=== PATIENT | male | born 1990 | race Asian ===

== ENCOUNTER 2019-10-31 08:55 | Emergency (ER) | payer BC ==
--- NOTE | 2019-10-31 09:15 | ED ---
GI/ HPI - HPI Summary HPI Summary: Patient is a 29 y/o M presenting to the ED for a chief complaint of hematuria and left flank pain that began on the night of 10/30/19. Patient describes the left flank pain as intermittent that worsens with movement. Patient denies any fever or hematuria before this episode began. He also complains of heartburn. He denies any alleviating factors. PMHx is significant for GERD for which he takes 2 Nexium daily. FMHx is significant for renal pelvis cancer in his father. - History of Current Complaint Chief Complaint: EDUrogenitalProblems Time Seen by Provider: 10/31/19 09:05 Stated Complaint: BLOOD IN URINE Hx Obtained From: Patient Onset/Duration: Atraumatic, Still Present Timing: Intermittent Severity: Moderate Current Severity: Moderate Pain Intensity: 4 Location of Pain: Flank - Left Associated Signs and Symptoms: Positive: Hematuria, Flank Pain - Left, Chest Pain - Heartburn Aggravating Factor(s): Movement Alleviating Factor(s): Nothing - Allergy/Home Medications Allergies/Adverse Reactions: Allergies Allergy/AdvReac Type Severity Reaction Status Date / Time No Known Allergies Allergy Verified 10/31/19 09:00 PMH/Surg Hx/FS Hx/Imm Hx Previously Healthy: Yes Endocrine/Hematology History: Denies: Hx Diabetes Cardiovascular History: Denies: Hx Hypercholesterolemia GI History: Reports: Hx Gastroesophageal Reflux Disease Sensory History: Denies: Hx Legally Blind, Hx Deafness Opthamlomology History: Denies: Hx Legally Blind EENT History: Denies: Hx Deafness - Surgical History Surgical History: None Surgery Procedure, Year, and Place: None Infectious Disease History: No Infectious Disease History: Denies: Traveled Outside the [place] in Last 30 Days - Family History Known Family History: Positive: Renal Disease - Renal pelvis cancer in father - Social History Occupation: Employed Full-time Lives: With Family Alcohol Use: None Hx Substance Use: No Substance Use Type: Reports: None Hx Tobacco Use: No Smoking Status (MU): Never Smoked Tobacco Review of Systems Negative: Fever Positive: Chest Pain - Heartburn Positive: Abdominal Pain - Left flank pain Positive: flank pain - Left, hematuria All Other Systems Reviewed And Are Negative: Yes Physical Exam - Summary Physical Exam Summary: Constitutional: Well-developed, Well-nourished, Alert. (-) Distressed Skin: Warm, Dry HENT: Normocephalic; Atraumatic Eyes: Conjunctiva normal Neck: Musculoskeletal ROM normal neck. (-) JVD, (-) Stridor, (-) Nuchal rigidity Cardio: Rhythm regular, rate normal, Heart sounds normal; Intact distal pulses; Radial pulses are 2+ and symmetric. (-) Murmur Pulmonary/Chest wall: Effort normal. (-) Respiratory distress, (-) Wheezes, (-) Rales Abd: Soft, (-) tenderness, (-) Distension, (-) Guarding, (-) Rebound. Left flank pain. Musculoskeletal: (-) Edema Lymph: (-) Cervical adenopathy Neuro: Alert, Oriented x3 Psych: Mood and affect Normal Triage Information Reviewed: Yes Vital Signs On Initial Exam: Initial Vitals Temp Pulse Resp BP Pulse Ox 98.3 F 100 16 145/93 94 10/31/19 08:56 10/31/19 08:56 10/31/19 08:56 10/31/19 08:56 10/31/19 08:56 Vital Signs Reviewed: Yes Procedures - Sedation Patient Received Moderate/Deep Sedation with Procedure: No Diagnostics - Vital Signs Vital Signs Temp Pulse Resp BP Pulse Ox 10/31/19 08:56 98.3 F 100 16 145/93 94 - Laboratory Result Diagrams: 10/31/19 09:14 10/31/19 09:14 Lab Statement: Any lab studies that have been ordered have been reviewed, and results considered in the medical decision making process. - Ultrasound Renal US Ultrasound Interpretation Completed By: Radiologist Summary of Ultrasound Findings: Renal US IMPRESSION: 1. NO EVIDENCE FOR HYDRONEPHROSIS. 2. THE KIDNEYS ARE SLIGHTLY INCREASED IN ECHOGENICITY POSSIBLY INDICATING MEDICAL RENAL DISEASE. Reviewed by Dr. Freeman. Re-Evaluation - Re-Evaluation First Eval Re-Evaluation Time: 10:24 Change: Unchanged Comment: At 10:24, patient is requesting an US rather than a CT after expressing a concern for exposure to radiation. I will order an US. Second Eval Re-Evaluation Time: 11:16 Change: Unchanged Comment: At 11:16, patient is requesting his UA results come back before he has a CT. Third Eval Re-Evaluation Time: 11:45 Change: Unchanged Comment: At 11:45, patient will defer a CT because there was no blood in his urine. GIGU Course/Dx - Course Course Of Treatment: 29-year-old male presents with left flank pain and concern for hematuria. Physical exam well-appearing, mild left flank pain. Labs notable for normal creatinine, UA without evidence of infection or hematuria. Patient requesting ultrasound as opposed to CT scans due to radiation. Ultrasound does not show any acute process, possible renal disease however patient w normal creatinine, low suspicion. Patient advised to follow-up with our primary care clinic for further workup. Patient declined CT scan at this time. Patient also requesting GI referral for acid reflux. - Diagnoses Provider Diagnoses: Flank pain Discharge ED - Sign-Out/Discharge Documenting (check all that apply): Patient Departure - Discharge - Discharge Plan Condition: Stable Disposition: HOME Patient Education Materials: Hematuria (ED), Flank Pain (ED) Referrals: [facility] [Outside] Sera Pierce MD [Medical Doctor] - Additional Instructions: You were seen in the emergency department for hematuria and acid reflux. Your labs did not show any abnormal kidney function values. Your urine did not show any blood. Your ultrasound did not show any evidence of stones. Please follow up with our primary care clinic to further workup your hematuria. Please follow up with GI regarding your reflux if you would like. Please follow up with your primary care doctor in next 2-3 days and return to emergency department for worsening or concerning symptoms. It was a pleasure taking care of you today. - Billing Disposition and Condition Condition: STABLE Disposition: Home - Attestation Statements Document Initiated by Wayne: Yes Documenting Scribe: Melissa Colbert Provider For Whom Wayne is Documenting (Include Credential): Golden Freeman MD Scribe Attestation: IMelissa, scribed for Golden Freeman MD on 10/31/19 at 1151. Scribe Documentation Reviewed: Yes Provider Attestation: The documentation as recorded by the Melissa peterson accurately reflects the service I personally performed and the decisions made by me, Golden Freeman MD Status of Scribe Document: Viewed
[2019-10-31 09:28] LABS: ABS Lymphocytes 1.4 10^3/ul (1.0-4.8); ABS Monocytes 0.4 10^3/ul (0-0.8); ABS Neutrophils 4.1 10^3/ul (1.5-7.7); Eosinophil % 0.6 %; Hematocrit 47 % (42-52); Hemoglobin 16.1 g/dL (14.0-18.0); Lymphocyte % 22.9 %; Mean Corpuscular HGB Conc 34 g/dL (31-36); Mean Corpuscular Hemoglobin 32 pg (27-31); Mean Corpuscular Volume 93 fL (80-94); Mean Platelet Volume 8.2 fL (7.4-10.4); Nucleated Red Blood Cells % 0.1; Platelet Count 220 10^3/uL (150-450); Red Blood Count 5.06 10^6 /uL (4.18-5.48); Red Cell Distribution Width 12 % (10-15); White Blood Count 5.9 10^3/uL (3.5-10.8)
[2019-10-31 09:56] LABS: Albumin 4.9 g/dL (3.2-5.2); Albumin/Globulin Ratio 1.5 (1-3); BUN/Creatinine Ratio 11.4 (8-20); Calcium 9.8 mg/dL (8.6-10.3); EGFR Non-African American 101.7 (>60); Globulin 3.2 g/dL (2-4); Potassium 3.5 mmol/L (3.5-5.0); Total Bilirubin 0.6 mg/dL (0.2-1.0); Total Protein 8.1 g/dL (6.4-8.9)
[2019-10-31] MEDS ORDERED: Al Hydrox/Mg Hydrox/Simet LIQ* 30 ML UDC PO ONE (10:03)
[2019-10-31] MEDS ORDERED: Lidocaine 2% VISCOUS* 15 ML UDC PO ONE (10:03)
[2019-10-31] MEDS ORDERED: Iohexol 300* (CONTRAST) 10 ML SDV IV ONE (10:04)
[2019-10-31 11:27] LABS: Urine Appearance Clear; Urine Bilirubin Negative (Negative); Urine Blood Negative (Negative); Urine Color Straw; Urine Glucose Negative (Negative); Urine Ketones Trace (Negative); Urine Nitrite Negative (Negative); Urine Protein Negative (Negative); Urine Specific Gravity 1.004 (1.010-1.030); Urine Urobilinogen Negative (Negative)
[2019-10-31 12:17] VITALS: BP 125/73
== END 2019-10-31 12:00 | disposition home or self-care (01) ==
LOC: ED 08:55
DX: M54.5 Low back pain (principal); R31.9 Hematuria, unspecified; R12 Heartburn; K21.9 Gastro-esophageal reflux disease without esophagitis; Z80.51 Family history of malignant neoplasm of kidney
CPT/HCPCS: 36415; 76775; 80053; 81003; 85025; 99283; A9270-GY